=== PATIENT | female | born 1985 ===

== ENCOUNTER 2016-10-23 21:26 | Emergency (ER) | payer OTHER ==
[~2016-10-23] VITALS: Ht 175.3 cm; Wt 99.8 kg
[2016-10-23 21:39] VITALS: BP 118/71; PULSE 70; RESP 16; TEMP 98.1; O2SAT 70; O2SAT 99
[2016-10-23] MEDS ORDERED: LEXA10TA PO (22:00)
[2016-10-23] MEDS ORDERED: SODIUM CHLOR 0.9% 1000 ML INJ 1,000 ML IV ONE (22:01)
--- NOTE | 2016-10-23 22:07 | PD ---
HPI Chief Complaint: Abdominal Pain Time Seen by Provider: 22:01 Travel History International Travel<30 days: No Contact w/Intl Traveler<30days: No Traveled to known affect area: No History of Present Illness HPI 30-year-old female presents to the emergency department by private transportation for complaint of right flank pain radiating to right lower quadrant. Patient had associated nausea without fever or vomiting. Patient denies dysuria frequency urgency or hematuria. Patient states this is the first day of her menses. Patient denies and states that she also uses contraceptive. Patient has history of Sjogren's syndrome. Patient states she does take meloxicam. Patient has taken no medications for her pain. The patient rates her discomfort as 6/10 in intensity. Patient has prior history of kidney stones. Patient does not report any history of gallbladder disease gastritis peptic ulcer disease or pancreatitis. No report of other complaints such as chest pain or shortness of breath. PFSH Past Medical History Narrative Medical Kidney stones, Sjogren syndrome, no tobacco use; nursing notes reviewed ?: Not LMP: 10/23/16 Social History Tobacco Use: No Allergies-Medications (Allergen,Severity, Reaction): Coded Allergies: Erythromycin (Verified Allergy, Unknown, 10/23/16) Reported Meds & Prescriptions Reported Meds & Active Scripts Active Phenergan (Promethazine HCl) 25 Mg Tablet 25 Mg PO Q6H PRN Lortab (Hydrocodone-Acetaminophen) 5-325 Mg Tab 1 Tab PO Q6H PRN Reported Lexapro (Escitalopram Oxalate) 10 Mg Tab 10 Mg PO DAILY Review of Systems Except as stated in HPI: all other systems reviewed are Neg General / Constitutional: No: Fever HENT: No: Congestion Cardiovascular: No: Chest Pain or Discomfort Respiratory: No: Shortness of Breath Gastrointestinal: Positive: Nausea, Abdominal Pain (right lower quadrant) Genitourinary: Positive: Flank Pain, No: Urgency, Frequency, Dysuria, Hematuria Musculoskeletal: No: Myalgias, Arthralgias Skin: No Rash Neurologic: No: Weakness Psychiatric: No: Anxiety Hematologic/Lymphatic: No: Easy Bruising Physical Exam Narrative GENERAL: Well-developed well-nourished female in no acute distress no respiratory distress SKIN: Warm and dry. HEAD: Normocephalic. EYES: No scleral icterus. No injection or drainage. NECK: Supple, trachea midline. No JVD or lymphadenopathy. CARDIOVASCULAR: Regular rate and rhythm without murmurs, gallops, or rubs. RESPIRATORY: Breath sounds equal bilaterally. No accessory muscle use. GASTROINTESTINAL: Abdomen soft, right-sided abdominal pain and right lower quadrant tenderness to direct palpation without guarding or rebound, nondistended. MUSCULOSKELETAL: No cyanosis, or edema. BACK: Nontender without obvious deformity. Right-sided CVA tenderness. Data Data Last Documented VS Vital Signs Date Time Temp Pulse Resp B/P Pulse Ox O2 Delivery O2 Flow Rate FiO2 10/24/16 00:23 74 18 97 10/23/16 23:38 125/66 Room Air 10/23/16 21:39 98.1 Orders Complete Blood Count With Diff (10/23/16 22:01) Basic Metabolic Panel (Bmp) (10/23/16 22:01) Urinalysis - C+S If Indicated (10/23/16 22:01) Ed Urine Pregnancytest Poc (10/23/16 22:01) Ct Abd/Pel W/O Iv Contrast (10/23/16 22:01) Ecg Monitoring (10/23/16 22:01) Iv Access Insert/Monitor (10/23/16 22:01) Ketorolac Inj (Toradol Inj) (10/23/16 22:15) Ondansetron Inj (Zofran Inj) (10/23/16 22:15) Sodium Chloride 0.9% Flush (Ns Flush) (10/23/16 22:15) Sodium Chlor 0.9% 1000 Ml Inj (Ns 1000 M (10/23/16 22:01) Hydromorphone Pf Inj (Dilaudid Pf Inj) (10/23/16 23:15) Ondansetron Inj (Zofran Inj) (10/23/16 23:30) Labs Laboratory Tests Test 10/23/16 10/23/16 22:10 22:45 White Blood Count 6.5 TH/MM3 Red Blood Count 4.32 MIL/MM3 Hemoglobin 12.1 GM/DL Hematocrit 36.4 % Mean Corpuscular Volume 84.3 FL Mean Corpuscular Hemoglobin 28.1 PG Mean Corpuscular Hemoglobin 33.3 % Concent Red Cell Distribution Width 11.9 % Platelet Count 230 TH/MM3 Mean Platelet Volume 9.3 FL Neutrophils (%) (Auto) 53.6 % Lymphocytes (%) (Auto) 34.0 % Monocytes (%) (Auto) 9.2 % Eosinophils (%) (Auto) 2.3 % Basophils (%) (Auto) 0.9 % Neutrophils # (Auto) 3.5 TH/MM3 Lymphocytes # (Auto) 2.2 TH/MM3 Monocytes # (Auto) 0.6 TH/MM3 Eosinophils # (Auto) 0.1 TH/MM3 Basophils # (Auto) 0.1 TH/MM3 CBC Comment DIFF FINAL Differential Comment Sodium Level 135 MEQ/L Potassium Level 3.8 MEQ/L Chloride Level 103 MEQ/L Carbon Dioxide Level 24.8 MEQ/L Anion Gap 7 MEQ/L Blood Urea Nitrogen 14 MG/DL Creatinine 0.66 MG/DL Estimat Glomerular Filtration 104 ML/MIN Rate Random Glucose 84 MG/DL Calcium Level 8.5 MG/DL Urine Color STRAW Urine Turbidity CLEAR Urine pH 5.5 Urine Specific [place] 1.003 Urine Protein NEG mg/dL Urine Glucose (UA) NEG mg/dL Urine Ketones NEG mg/dL Urine Occult Blood TRACE Urine Nitrite NEG Urine Bilirubin NEG Urine Leukocyte Esterase NEG Urine RBC 0-3 /hpf Urine WBC 0-2 /hpf Urine Squamous Epithelial 0-5 /hpf Cells Urine Bacteria NONE /hpf Microscopic Urinalysis Comment CULT NOT INDICATED MDM Medical Decision Making Medical Screen Exam Complete: Yes Emergency Medical Condition: Yes Medical Record Reviewed: Yes Interpretation(s) CBC & BMP Diagram 10/23/16 22:10 Vital Signs Date Time Temp Pulse Resp B/P Pulse Ox O2 Delivery O2 Flow Rate FiO2 10/23/16 22:02 18 10/23/16 21:39 98.1 70 16 118/71 99 POC hcg: negative CT abd/pel w/o: CONCLUSION: Probable 1mm stone distal right ureter. Isidro Pretty MD FACR on October 23, 2016 at 22:56 Board Certified Radiologist. This report was verified electronically. Differential Diagnosis Flank pain, renal colic, pyelonephritis, appendicitis, cholecystitis, ectopic , ovarian torsion Narrative Course IV access obtained specimens collected and sent for resulting urine specimen obtained; patient ordered normal saline bolus along with Toradol 30 mg IV and Zofran 4 mg IV; CT scan noncontrast kidney stone protocol CBC: wnl Diagnosis Primary Impression: Renal colic on right side Referrals: Urologist as needed Patient Instructions: Narcotic given in the ED, General Instructions Departure Forms: Tests/Procedures, Work Release Special Instructions: no work x 1 day Additional Instructions: Increase fluid hydration Follow-up with primary care provider/urologist Return to the emergency department for any concerns or change in condition Strain urine Take pain medication as prescribed as needed Take acetaminophen/Tylenol every 4 hours as needed for fever 100.4F or greater Med/Other Pt SpecificInfo: Prescription(s) given Scripts Promethazine (Phenergan)25 Mg Newotx40 Mg PO Q6H PRN (NAUSEA OR VOMITING) #10 TAB Ref 0 Prov:Ariela Doan MD 10/23/16 Hydrocodone-Acetaminophen (Lortab)5-325 Mg Tab1 Tab PO Q6H PRN (PAIN) #12 TAB Ref 0 Prov:Ariela Doan MD 10/23/16 Disposition: 01 DISCHARGE HOME Condition: Stable Ariela Doan MD Oct 23, 2016 22:07
[2016-10-23] MEDS ORDERED: KETOROLAC TROMETHAMINE 30 MG/ML (IVP) VIAL IVP ONE (22:15)
[2016-10-23] MEDS ORDERED: ONDANSETRON HCL 4 MG/2 ML VIAL IVP ONE (22:15)
[2016-10-23] MEDS ORDERED: SODIUM CHLORIDE 0.9% FLUSH 10 ML FLUSH IVF PRN (22:15)
[2016-10-23 22:20] LABS: AUTOMATED NEUTROPHIL # 3.5 TH/MM3 (1.8-7.7); BASOPHIL # 0.1 TH/MM3 (0-0.2); BASOPHIL % 0.9 % (0.0-2.0); EOSINOPHIL # 0.1 TH/MM3 (0-0.4); EOSINOPHIL % 2.3 % (0.0-4.0); HEMATOCRIT 36.4 % (35.0-46.0); HEMO FLAGS DIFF FINAL; LYMPHOCYTE # 2.2 TH/MM3 (1.0-4.8); MEAN CELL VOLUME 84.3 FL (80.0-100.0); MEAN CORPUSCULAR HEMOGLOBIN 28.1 PG (27.0-34.0); MEAN CORPUSCULAR HGB CONC 33.3 % (32.0-36.0); MONO % 9.2 % (0.0-8.0); NEUT % 53.6 % (16.0-70.0); PLATELET COUNT 230 TH/MM3 (150-450); RED BLOOD COUNT 4.32 MIL/MM3 (4.00-5.30); RED CELL DISTRIBUTION WIDTH 11.9 % (11.6-17.2); WHITE BLOOD COUNT 6.5 TH/MM3 (4.0-11.0)
[2016-10-23 22:28] LABS: POTASSIUM 3.8 MEQ/L (3.5-5.1)
[2016-10-23 22:31] LABS: BICARBONATE 24.8 MEQ/L (21.0-32.0)
[2016-10-23 22:52] LABS: BLOOD, URINE TRACE (NEG); GLUCOSE,URINE NEG (NEG); KETONE, URINE NEG (NEG); NITRITE,URINE NEG (NEG); PH, URINE 5.5 (5.0-8.5)
[2016-10-23 22:56] LABS: RBC, URINE 0-3 /hpf (0-3); SQUAMOUS EPITHELIAL CELL URINE 0-5 /hpf (0-5); URINE COLOR STRAW (YELLW/STRAW); WBC, URINE 0-2 /hpf (0-5)
[2016-10-23 22:57] LABS: COMMENT (UR) CULT NOT INDICATED; CULTURE IF INDICATED CULT NOT INDICATED
--- NOTE | 2016-10-23 23:01 | RADRPT ---
EXAM DATE/TIME: 10/23/2016 22:40 [facility] COMPARISON: No previous studies available for comparison. INDICATIONS : Right flank pain for one day. ORAL CONTRAST: No oral contrast ingested. RADIATION DOSE: 21.85 CTDIvol (mGy) MEDICAL HISTORY : Renal calculi. SURGICAL HISTORY : None. ENCOUNTER: Initial ACUITY: 1 day PAIN SCALE: 6/10 LOCATION: Right flank TECHNIQUE: Volumetric scanning of the abdomen and pelvis was performed. Using automated exposure control and ad justment of the mA and/or kV according to patient size, radiation dose was kept as low as reasonably achievable to obtain optimal diagnostic quality images. DICOM format image data is available electro nically for review and comparison. FINDINGS: LOWER LUNGS: The visualized lower lungs are clear. LIVER: Homogeneous density without lesion. There is no dilation of the biliary tree. No calcified gallston es. SPLEEN: Normal size without lesion. PANCREAS: Within normal limits. KIDNEYS: Mild prominence to the right ureter without perinephric stranding. Possible 1mm stone distal right u reter. No other calcifications in either kidney are evident. ADRENAL GLANDS: Within normal limits. VASCULAR: There is no aortic aneurysm. BOWEL/MESENTERY: The stomach, small bowel, and colon demonstrate no acute abnormality. There is no free intraperitone al air or fluid. ABDOMINAL WALL: Within normal limits. RETROPERITONEUM: There is no lymphadenopathy. BLADDER: No wall thickening or mass. REPRODUCTIVE: Prominent uterus with In place. INGUINAL: There is no lymphadenopathy or hernia. MUSCULOSKELETAL: Within normal limits for patient age. CONCLUSION: Probable 1mm stone distal right ureter. Isidro Pretty MD FACR on October 23, 2016 at 22:56 Board Certified Radiologist. This report was verified electronically.
[2016-10-23] MEDS ORDERED: PROM25TA10 PO (23:08)
[2016-10-23] MEDS ORDERED: HYDR-3533 PO (23:08)
[2016-10-23] MEDS ORDERED: HYDROmorphone HCL PF 1 MG/ML VIAL IV PUSH ONE (23:15)
[2016-10-23] MEDS ORDERED: ONDANSETRON HCL 4 MG/2 ML VIAL IV PUSH ONE (23:30)
[2016-10-23 23:38] VITALS: BP 125/66; PULSE 63; RESP 18; O2SAT 97
== END 2016-10-24 00:24 | disposition home or self-care (01) ==
LOC: PHED 21:26
DX: N23 Unspecified renal colic (principal); M35.00 Sjogren syndrome, unspecified; Z87.442 Personal history of urinary calculi
CPT/HCPCS: 74176; 80048; 81001; 84703; 85025; 96361; 96374; 96375; 99285; J1170; J1885; J2405; J7030